=== PATIENT | male | born 1950 | race Caucasian/White ===

== ENCOUNTER 2019-05-16 09:25 | Outpatient (REF) | payer MEDICARE, SELFPAY ==
[2019-05-16 11:15] LABS: HCT 44.4 % (40.0-50.0); HGB 14.9 g/dL (13.5-17.5); Mean Corp. HGB Concentration 33.6 g/dL (32.0-36.0); Mean Corpuscular Hemoglobin 29.9 pg (27.0-33.0); Mean Platelet Volume 12.4 fL (8.0-11.0); Platelet Count 236 x1000/uL (130-400); RBC 4.99 m/cumm (4.50-6.00); RBC Distribution Width 13.2 % (11.8-14.1)
[2019-05-16 11:23] LABS: ALT 39 U/L (16-63); AST 18 U/L (15-37); Albumin 4.1 g/dL (3.4-5.0); Alkaline Phosphatase 91 U/L (46-116); Anion Gap 11.2 mmol/L (3-11); BUN 15 mg/dL (7-18); Bilirubin, Total 0.5 mg/dL (0.2-1.0); CO2 24.8 mmol/L (21.0-32.0); CREATININE 1.02 mg/dL (0.70-1.30); Calcium 9.3 mg/dL (8.5-10.1); Calculated LDL 165 mg/dL (<100); Chloride 107 mmol/L (98-107); Cholesterol 232 mg/dL (<200); Glucose 98 mg/dL (74-106); HDL Cholesterol 51 mg/dL (40-60); Potassium 4.5 mmol/L (3.5-5.1); Sodium 143 mmol/L (136-145); Total Protein 6.7 g/dL (6.4-8.2); Triglyceride 83 mg/dL (<150)
[2019-05-17 10:51] LABS: PSA, Screening 1.3 ng/mL (0.0-4.5)
== END 2019-05-16 09:45 ==
LOC: NCHCN 09:25
PROVIDERS: PCP Family Medicine; Visit Provider Family Medicine
DX: I10 Essential (primary) hypertension (principal); E78.5 Hyperlipidemia, unspecified; Z12.5 Encounter for screening for malignant neoplasm of prostate; Z80.42 Family history of malignant neoplasm of prostate
CPT/HCPCS: 80053; 80061; 84153; 85027

== ENCOUNTER 2020-10-06 08:53 | Outpatient (REF) | payer MEDICARE, SELFPAY ==
[2020-10-06 15:48] LABS: ALT 22 U/L (16-63); AST 11 U/L (15-37); Albumin 4.2 g/dL (3.4-5.0); Alkaline Phosphatase 80 U/L (46-116); Anion Gap 10.9 mmol/L (3-11); BUN 15 mg/dL (7-18); Bilirubin, Total 0.6 mg/dL (0.2-1.0); CO2 24.1 mmol/L (21.0-32.0); CREATININE 1.1 mg/dL (0.70-1.30); Calcium 9.1 mg/dL (8.5-10.1); Calculated LDL 141 mg/dL (<100); Chloride 108 mmol/L (98-107); Cholesterol 203 mg/dL (<200); Glucose 93 mg/dL (74-106); HDL Cholesterol 51 mg/dL (40-60); Potassium 4.7 mmol/L (3.5-5.1); Sodium 143 mmol/L (136-145); Total Protein 6.6 g/dL (6.4-8.2); Triglyceride 55 mg/dL (<150)
[2020-10-06 22:29] LABS: PSA, Screening 1.3 ng/mL (0.0-4.5)
== END 2020-10-06 08:54 | disposition home or self-care (01) ==
LOC: NCHCN 08:53
PROVIDERS: PCP Family Medicine; Visit Provider Family Medicine
DX: Z00.00 Encounter for general adult medical examination without abnormal findings (principal); I25.10 Atherosclerotic heart disease of native coronary artery without angina pectoris; I10 Essential (primary) hypertension; E78.5 Hyperlipidemia, unspecified; Z80.42 Family history of malignant neoplasm of prostate
CPT/HCPCS: 80053; 80061; 84153